=== PATIENT | female | born 1970 ===

== ENCOUNTER 2022-04-23 15:18 | Inpatient (IN) | payer OTHER ==
[~2022-04-23] VITALS: Ht 165.1 cm; Wt 94.3 kg
[~2022-04-23 15:18] MED LIST: PERCOCET PO; RESTORIL PO; SOMA PO
[2022-04-29] MEDS ORDERED: SIMVASTATIN20 MG (15:27)
[2022-04-29] MEDS ORDERED: CLOTRIMAZOLE-BE15 G1 (15:27)
[2022-04-29] MEDS ORDERED: DICLOFENAC POTA50 MG (15:27)
[2022-04-29] MEDS ORDERED: ZOLPIDEM TARTRA10 MG (15:27)
[2022-04-29] MEDS ORDERED: PHENTERMINE H37.5 M1 (15:27)
[2022-05-05] MEDS ORDERED: HYOSCYAMINE0.125 M1 SL (08:39)
[2022-05-05] MEDS ORDERED: INTESTINEX680 M1 PO (08:39)
[2022-05-05] MEDS ORDERED: NEURONTIN300 MG PO (08:40)
== END 2022-05-05 14:09 | disposition home or self-care (01) | DRG 331 ==
LOC: O/R 04-29 06:10 → SURG 04-29 10:45 → SURH 04-29 16:25
PROVIDERS: ADMIT Surgery; ATTEND Surgery
PROC: 07BC4ZZ Excision of Pelvis Lymphatic, Percutaneous Endoscopic Approach (ICD-10-PCS; 2022-04-29)
PROC: 07BB4ZZ Excision of Mesenteric Lymphatic, Percutaneous Endoscopic Approach (ICD-10-PCS; 2022-04-29)
PROC: 0DTF4ZZ Resection of Right Large Intestine, Percutaneous Endoscopic Approach (ICD-10-PCS; principal; 2022-04-29 11:00)
DX: C18.2 Malignant neoplasm of ascending colon (principal); F12.93 Cannabis use, unspecified with withdrawal; T50.905A Adverse effect of unspecified drugs, medicaments and biological substances, initial encounter; K66.0 Peritoneal adhesions (postprocedural) (postinfection); R59.0 Localized enlarged lymph nodes; M79.7 Fibromyalgia; R41.0 Disorientation, unspecified; E16.2 Hypoglycemia, unspecified; I10 Essential (primary) hypertension; Z20.822 Contact with and (suspected) exposure to COVID-19